=== PATIENT | male | born 1970 | race Caucasian/White ===

== ENCOUNTER → 2024-12-27 10:52 | Outpatient (REF) | payer OTHER, SELFPAY | LOC: HWRAD 10:52 | PROVIDERS: ATTENDING PHYSICIAN Podiatrist Foot & Ankle Surgery; FAMILY PHYSICIAN Physician Assistant Medical | DX: M79.672 Pain in left foot (principal); S93.602A Unspecified sprain of left foot, initial encounter | CPT/HCPCS: 73630 ==